=== PATIENT | female | born 1955 | race Caucasian/White ===

== ENCOUNTER 2021-02-07 06:15 | Observation (INO) | payer MEDICARE ==
--- NOTE | 2021-02-07 06:40 | ERPHSYRPT ---
- History of Present Illness Source: patient Exam Limitations: no limitations Timing/Duration: day(s) (3) Cough Quality/Degree: mild, dry cough Possible Cause: no prior episodes Modifying Factors: Improves With: coughing Associated Symptoms: cough, muscle aches, shortness of breath, No chest pain/ soreness <ALEXANDRA VILLEGAS - Last Filed: 02/07/21 06:58> <ELSA BARTLETT - Last Filed: 02/07/21 11:33> - History of Present Illness Time Seen by Provider: 02/07/21 06:39 Physician History: This is a morbidly obese 65-year-old white female who has a history of hypertension but is not on any treatment for and presents with known positive Covid 19 viral infection that was diagnosed yesterday. Patient symptoms of nausea, vomiting, diarrhea and cough as well as myalgias and arthralgias started Friday prior to evaluation. Patient also has a history of migraine headaches arthritis, restless leg syndrome, neuropathy and sciatica. Patient sees a nurse practitioner by the last name of Pallavi. Patient has taken intravenous Demerol in the past without any problems. Patient has had multiple orthopedic surgeries. (ALEXANDRA VILLEGAS) Allergies/Adverse Reactions: morphine Adverse Reaction (Intermediate, Verified 02/07/21 06:51) Vomiting Home Medications: Albuterol 8 gm Mdi Hfa [Ventolin Hfa MDI] 8 gm IH Q6HPRN PRN 02/07/21 [History] Ca/D3/Mag Ox/Zinc/Accounting Methods Analyst/Mahendra/Bor [Calcium 600-D3 Plus Caplet] 1 tab PO DAILY 02/07/21 [History] Cholecalciferol (Vitamin D3) [Vitamin D3] 1,000 units PO DAILY 02/07/21 [Histor y] Cyanocobalamin (Vitamin B-12) [Cyanocobalamin Injection] 1,000 mcg IM UD 02/07/21 [History] Escitalopram Oxalate 10 mg [Lexapro 10 MG] 10 mg PO DAILY 02/07/21 [History] Estradiol 1 mg PO DAILY 02/07/21 [History] Folic Acid 1 mg PO DAILY 02/07/21 [History] Furosemide 20 mg [Lasix 20 mg] 20 mg PO DAILY 02/07/21 [History] Gabapentin 300 mg [Neurontin 300 mg] 300 mg PO HS 02/07/21 [History] Hydrocodone/Acetaminophen [Hydrocodone-Acetamin 5-325 mg] 1 tab PO Q6H PRN PRN 02/07/21 [History] Ondansetron ODT 4 MG [Zofran Odt 4 mg] 4 mg SL Q4H PRN PRN 02/07/21 [History] Oxybutynin Chloride [Oxybutynin Chloride ER] 15 mg PO DAILY 02/07/21 [History] Potassium Chloride [K-Tab ER] 10 meq PO DAILY 02/07/21 [History] Tizanidine HCl 4 mg [Zanaflex 4 MG] 4 mg PO HS 02/07/21 [History] Travel Risk - International Travel Have you traveled outside of the country in past 3 weeks: No - Coronavirus Screening Are you exhibiting any of the following symptoms?: Yes Close contact with a COVID-19 positive Pt in past 14-21 Days: Yes <ALEXANDRA VILLEGAS - Last Filed: 02/07/21 06:58> - Review of Systems Constitutional: Weakness Eyes: No Symptoms Ears, Nose, & Throat: No Symptoms Respiratory: Cough, Dyspnea Cardiac: No Chest Pain Abdominal/Gastrointestinal: Abdominal Pain, Nausea, Vomiting, Diarrhea Genitourinary Symptoms: No Symptoms Musculoskeletal: No Symptoms Skin: No Symptoms Neurological: No Symptoms Psychological: No Symptoms Endocrine: No Symptoms Hematologic/Lymphatic: No Symptoms Immunological/Allergic: No Symptoms All Other Systems: Reviewed and Negative <ALEXANDRA VILLEGAS - Last Filed: 02/07/21 06:58> - Past Medical History Pertinent Past Medical History: Yes Neurological History: Migraines Cardiac History: No Pertinent History Respiratory History: No Pertinent History Endocrine Medical History: No Pertinent History Musculoskeletal History: Osteoarthritis - Past Surgical History Past Surgical History: Yes <ALEXANDRA VILLEGAS - Last Filed: 02/07/21 06:58> - Physical Exam General Appearance: mild distress, alert, anxiety, obese Eye Exam: PERRL/EOMI, eyes nml inspection Ears, Nose, Throat Exam: normal ENT inspection, moist mucous membranes Neck Exam: normal inspection, non-tender, supple, full range of motion Respiratory Exam: normal breath sounds, lungs clear, airway intact, No chest tenderness, No respiratory distress Cardiovascular Exam: regular rate/rhythm, normal heart sounds, normal peripheral pulses Gastrointestinal/Abdomen Exam: soft, normal bowel sounds, tenderness (Mild diffuse), No guarding Pelvic Exam: not done Rectal Exam: not done Back Exam: normal inspection, normal range of motion, No CVA tenderness, No vertebral tenderness Extremity Exam: normal inspection, normal range of motion, pelvis stable Neurologic Exam: alert, oriented x 3, cooperative, 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, normal mood/affect, sensation nml Skin Exam: normal color, warm, dry Lymphatic Exam: No adenopathy SpO2 Interpretation: normal O2 Delivery: Room Air <ALEXANDRA VILLEGAS - Last Filed: 02/07/21 06:58> - Nursing Vital Signs Nursing Vital Signs: Initial Vital Signs Temperature 98.1 F 02/07/21 06:16 Pulse Rate 66 02/07/21 06:16 Respiratory Rate 22 02/07/21 06:16 Blood Pressure 205/81 02/07/21 06:16 O2 Sat by Pulse Oximetry 97 02/07/21 06:16 Pain Scale Pain Intensity 2 - Course Nursing assessment & vital signs reviewed: Yes <ALEXANDRA VILLEGAS - Last Filed: 02/07/21 06:58> - Course EKG Interpreted by Ut: RATE (59), Sinus Rhythm, NORMAL AXIS, NORMAL INTERVALS - Radiology Exams Chest X-ray Interpretation: Teleradiologist Report (Cardiomegaly, lung granuloma, osteopenia, arthritis) - CT Exams Chest CT Interpretation: Tele-radiologist Report (No pulmonary embolus. Borderline cardiomegaly. Few tiny mediastinal calcified nodes. Small hiatal hernia. Calcified lung granulomas. No suspicious pulmonary masses. Mild osteopenia. Degenerative changes along the spine. Small L1 ventral hemangioma.) <ELSA BARTLETT - Last Filed: 02/07/21 11:33> Ordered Tests: Active Orders 24 hr Category Date Time Status EKG-ER Only STAT Care 02/07/21 06:41 Active IV Insertion STAT Care 02/07/21 06:41 Active Isolation, Initiate & Maintain STAT Care 02/07/21 06:41 Active CHEST 1 VIEW (PORTABLE) Stat Exams 02/07/21 06:44 Completed CHEST WITH CONTRAST [CT] Stat Exams 02/07/21 08:16 Completed AMYLASE Stat Lab 02/07/21 07:10 Completed BLOOD CULTURE Stat Lab 02/07/21 07:10 Received CBC W DIFF Stat Lab 02/07/21 07:10 Completed CMP Stat Lab 02/07/21 07:10 Completed CULTURE,URINE Stat Lab 02/07/21 07:11 Received D-DIMER QUANTITATIVE Stat Lab 02/07/21 07:10 Completed Ferritin Stat Lab 02/07/21 07:10 Completed INFLUENZA A+B AV Stat Lab 02/07/21 07:10 Completed LDH-LACTATE DEHYDROGENASE Stat Lab 02/07/21 07:10 Completed LIPASE Stat Lab 02/07/21 07:10 Completed Lactic Acid Stat Lab 02/07/21 06:41 Completed Manual Differential NC Stat Lab 02/07/21 07:10 Completed [place] Screen Stat Lab 02/07/21 07:10 Completed TROPONIN Q3H Lab 02/07/21 07:10 Completed TROPONIN Q3H Lab 02/07/21 10:00 Completed TROPONIN Q3H Lab 02/07/21 12:45 Ordered TROPONIN Q3H Lab 02/07/21 15:45 Ordered TROPONIN Q3H Lab 02/07/21 18:45 Ordered UA W/RFX UR CULTURE Stat Lab 02/07/21 07:11 Completed Transfer Order Routine Transfer 02/07/21 Ordered Medication Summary Generic Name Dose Route Start Last Admin Trade Name Freq PRN Reason Stop Dose Admin Nitroglycerin/Dextrose 250 mls @ 1.5 mls/hr 02/07/21 08:22 02/07/21 08:36 Ntg 0.2mg/Ml In D5w Glass IV 03/09/21 08:21 5 mcg/min .Q24H PRN 1.5 mls/hr CHEST PAIN Administration Protocol 5 MCG/MIN Potassium Chloride 20 meq in 100 mls @ 50 mls/hr 02/07/21 08:45 02/07/21 10:57 Potassium Chloride 20 Meq In Water 100ml IV 02/07/21 12:44 50 mls/hr Q2H FEDE Administration Magnesium Sulfate/Dextrose 100 mls @ 100 mls/hr 02/07/21 08:45 02/07/21 11:26 Magnesium 1 Gm / 100 Ml D5w IV 02/07/21 10:44 100 mls/hr Q1H FEDE Administration Sodium Chloride 1,000 mls @ 100 mls/hr 02/07/21 09:00 02/07/21 08:58 Sodium Chloride 0.9% 1000 Ml IV 03/09/21 08:59 100 mls/hr .Q10H FEDE Administration Discontinued Medications Generic Name Dose Route Start Last Admin Trade Name Freq PRN Reason Stop Dose Admin Aspirin 324 mg 02/07/21 08:23 02/07/21 08:36 Baby Aspirin 81 Mg Chew PO 02/07/21 08:24 324 mg STAT ONE Administration Aspirin Confirm 02/07/21 08:33 Baby Aspirin 81 Mg Chew Administered 02/07/21 08:34 Dose 324 mg .ROUTE .STK-MED ONE Sodium Chloride 1,000 mls @ 999 mls/hr 02/07/21 06:41 02/07/21 08:55 Sodium Chloride 0.9% 1000 Ml IV 02/07/21 07:41 Infused .Q1H1M STA Infusion Sodium Chloride Confirm 02/07/21 06:56 Sodium Chloride 0.9% 1000 Ml Administered 02/07/21 06:57 Dose 1,000 mls @ ud .ROUTE .STK-MED ONE Nicardipine HCl 25 mg/ Sodium 250 mls @ 0 mls/hr 02/07/21 08:18 Chloride IV 03/09/21 08:17 .Q0M PRN TITRATE FOR BLOOD PRESSURE Protocol Titrate Ceftriaxone Sodium/Dextrose 1 g in 50 mls @ 100 mls/hr 02/07/21 08:19 02/07/21 09:09 Rocephin 1 Gm-D5w 50 Ml Bag IV 02/07/21 08:48 Infused STAT ONE Infusion Ceftriaxone Sodium/Dextrose Confirm 02/07/21 08:33 Rocephin 1 Gm-D5w 50 Ml Bag Administered 02/07/21 08:34 Dose 1 g in 50 mls @ ud IV .STK-MED ONE Sodium Chloride Confirm 02/07/21 08:49 Sodium Chloride 0.9% 1000 Ml Administered 02/07/21 08:50 Dose 1,000 mls @ ud .ROUTE .STK-MED ONE Ketorolac Tromethamine 30 mg 02/07/21 07:57 02/07/21 08:05 Toradol 30 Mg Injection IV 02/07/21 07:58 30 mg STAT ONE Administration Ketorolac Tromethamine Confirm 02/07/21 08:02 Toradol 30 Mg Injection Administered 02/07/21 08:03 Dose 30 mg .ROUTE .STK-MED ONE Meperidine HCl 50 mg 02/07/21 06:51 02/07/21 06:58 Demerol 50 Mg IV 02/07/21 06:52 50 mg STAT ONE Administration Meperidine HCl Confirm 02/07/21 06:56 Demerol 50 Mg Administered 02/07/21 06:57 Dose 50 mg .ROUTE .[facility] ONE Ondansetron HCl 4 mg 02/07/21 06:41 02/07/21 06:57 Zofran 4 Mg/2 Ml Vial IV 02/07/21 06:42 4 mg STAT ONE Administration Ondansetron HCl Confirm 02/07/21 06:56 Zofran 4 Mg/2 Ml Vial Administered 02/07/21 06:57 Dose 4 mg .ROUTE .[facility] ONE Prochlorperazine Edisylate 10 mg 02/07/21 07:56 02/07/21 08:05 Compazine 10 Mg/2 Ml IV 02/07/21 07:57 10 mg STAT ONE Administration Prochlorperazine Edisylate Confirm 02/07/21 08:02 Compazine 10 Mg/2 Ml Administered 02/07/21 08:03 Dose 10 mg .ROUTE .[facility] Lab/Rad Data: Laboratory Result Diagrams 02/07/21 07:10 02/07/21 07:10 Laboratory Results 02/07/21 02/07/21 02/07/21 Range/Units 10:00 07:11 07:10 WBC (4.0-10.5) K/mm3 RBC (4.1-5.4) M/mm3 Hgb (12.0-16.0) gm/dl Hct (35-47) % MCV (78-100) fl MCH (26-32) pg MCHC (32-36) g/dl RDW (11.5-14.0) % Plt Count (150-450) K/mm3 MPV (7.5-11.0) fl D-Dimer (215-500) ng/mL Sodium (137-145) mmol/L Potassium (3.5-5.1) mmol/L Chloride (98-107) mmol/L Carbon Dioxide (22-30) mmol/L Anion Gap (5-15) MEQ/L BUN (7-17) mg/dL Creatinine (0.52-1.04) mg/dL Estimated GFR ML/MIN Glucose (74-106) mg/dL Lactic Acid (0.4-2.0) Calcium (8.4-10.2) mg/dL Ferritin (11.1-264) ng/mL Total Bilirubin (0.2-1.3) mg/dL AST (14-36) U/L ALT (0-35) U/L Alkaline Phosphatase (38-126) U/L Lactate Dehydrogenase (120-246) U/L Troponin I 0.097 H* (0.000-0.034) ng/mL Serum Total Protein (6.3-8.2) g/dL Albumin (3.5-5.0) g/dL Amylase (30-110) U/L Lipase (23-300) U/L Urine Color YELLOW (YELLOW) Urine Appearance SLIGHTLY CLOUDY (CLEAR) Urine pH 7.0 (5-6) Ur Specific [place] Level 1.010 (1.005-1.025) Urine Protein NEGATIVE (Negative) Urine Ketones MODERATE (NEGATIVE) Urine Blood SMALL (0-5) Prem/ul Urine Nitrite POSITIVE (NEGATIVE) Urine Bilirubin NEGATIVE (NEGATIVE) Urine Urobilinogen NEGATIVE (0-1) mg/dL Ur Leukocyte Esterase NEGATIVE (NEGATIVE) Urine WBC (Auto) 6-10 (0-5) /HPF Urine RBC (Auto) NONE (0-2) /HPF U Epithel Cells (Auto) NONE (FEW) /HPF Urine Bacteria (Auto) RARE (NEGATIVE) /HPF Urine Mucus (Auto) SLIGHT (NEGATIVE) /HPF Urine Culture Reflexed YES (NO) Urine Glucose NEGATIVE (NEGATIVE) mg/dL Monoscreen NEGATIVE (Negative) Influenza Type A Ag (NEGATIVE) Influenza Type B Ag (NEGATIVE) Group A Strep Antibody (NEGATIVE) 02/07/21 02/07/21 02/07/21 Range/Units 07:10 07:10 07:10 WBC (4.0-10.5) K/mm3 RBC (4.1-5.4) M/mm3 Hgb (12.0-16.0) gm/dl Hct (35-47) % MCV (78-100) fl MCH (26-32) pg MCHC (32-36) g/dl RDW (11.5-14.0) % Plt Count (150-450) K/mm3 MPV (7.5-11.0) fl D-Dimer (215-500) ng/mL Sodium (137-145) mmol/L Potassium (3.5-5.1) mmol/L Chloride (98-107) mmol/L Carbon Dioxide (22-30) mmol/L Anion Gap (5-15) MEQ/L BUN (7-17) mg/dL Creatinine (0.52-1.04) mg/dL Estimated GFR ML/MIN Glucose (74-106) mg/dL Lactic Acid (0.4-2.0) Calcium (8.4-10.2) mg/dL Ferritin (11.1-264) ng/mL Total Bilirubin (0.2-1.3) mg/dL AST (14-36) U/L ALT (0-35) U/L Alkaline Phosphatase (38-126) U/L Lactate Dehydrogenase (120-246) U/L Troponin I 0.105 H* (0.000-0.034) ng/mL Serum Total Protein (6.3-8.2) g/dL Albumin (3.5-5.0) g/dL Amylase (30-110) U/L Lipase (23-300) U/L Urine Color (YELLOW) Urine Appearance (CLEAR) Urine pH (5-6) Ur Specific [place] Level (1.005-1.025) Urine Protein (Negative) Urine Ketones (NEGATIVE) Urine Blood (0-5) Prem/ul Urine Nitrite (NEGATIVE) Urine Bilirubin (NEGATIVE) Urine Urobilinogen (0-1) mg/dL Ur Leukocyte Esterase (NEGATIVE) Urine WBC (Auto) (0-5) /HPF Urine RBC (Auto) (0-2) /HPF U Epithel Cells (Auto) (FEW) /HPF Urine Bacteria (Auto) (NEGATIVE) /HPF Urine Mucus (Auto) (NEGATIVE) /HPF Urine Culture Reflexed (NO) Urine Glucose (NEGATIVE) mg/dL Monoscreen (Negative) Influenza Type A Ag NEGATIVE (NEGATIVE) Influenza Type B Ag NEGATIVE (NEGATIVE) Group A Strep Antibody NOT DETECTED (NEGATIVE) 02/07/21 02/07/21 02/07/21 Range/Units 07:10 07:10 07:10 WBC 5.0 (4.0-10.5) K/mm3 RBC 4.45 (4.1-5.4) M/mm3 Hgb 13.9 (12.0-16.0) gm/dl Hct 41.9 (35-47) % MCV 94.2 (78-100) fl MCH 31.2 (26-32) pg MCHC 33.2 (32-36) g/dl RDW 12.8 (11.5-14.0) % Plt Count 246 (150-450) K/mm3 MPV 10.2 (7.5-11.0) fl D-Dimer 1293 H* (215-500) ng/mL Sodium 140 (137-145) mmol/L Potassium 3.1 L (3.5-5.1) mmol/L Chloride 107 (98-107) mmol/L Carbon Dioxide 18 L (22-30) mmol/L Anion Gap 17.5 H (5-15) MEQ/L BUN 6 L (7-17) mg/dL Creatinine 0.58 (0.52-1.04) mg/dL Estimated GFR > 60.0 ML/MIN Glucose 124 H (74-106) mg/dL Lactic Acid (0.4-2.0) Calcium 8.9 (8.4-10.2) mg/dL Ferritin 173 (11.1-264) ng/mL Total Bilirubin 0.50 (0.2-1.3) mg/dL AST 34 (14-36) U/L ALT 21 (0-35) U/L Alkaline Phosphatase 113 (38-126) U/L Lactate Dehydrogenase 212 (120-246) U/L Troponin I (0.000-0.034) ng/mL Serum Total Protein 8.1 (6.3-8.2) g/dL Albumin 4.2 (3.5-5.0) g/dL Amylase 94 (30-110) U/L Lipase 34 (23-300) U/L Urine Color (YELLOW) Urine Appearance (CLEAR) Urine pH (5-6) Ur Specific [place] Level (1.005-1.025) Urine Protein (Negative) Urine Ketones (NEGATIVE) Urine Blood (0-5) Prem/ul Urine Nitrite (NEGATIVE) Urine Bilirubin (NEGATIVE) Urine Urobilinogen (0-1) mg/dL Ur Leukocyte Esterase (NEGATIVE) Urine WBC (Auto) (0-5) /HPF Urine RBC (Auto) (0-2) /HPF U Epithel Cells (Auto) (FEW) /HPF Urine Bacteria (Auto) (NEGATIVE) /HPF Urine Mucus (Auto) (NEGATIVE) /HPF Urine Culture Reflexed (NO) Urine Glucose (NEGATIVE) mg/dL Monoscreen (Negative) Influenza Type A Ag (NEGATIVE) Influenza Type B Ag (NEGATIVE) Group A Strep Antibody (NEGATIVE) 02/07/21 Range/Units 06:41 WBC (4.0-10.5) K/mm3 RBC (4.1-5.4) M/mm3 Hgb (12.0-16.0) gm/dl Hct (35-47) % MCV (78-100) fl MCH (26-32) pg MCHC (32-36) g/dl RDW (11.5-14.0) % Plt Count (150-450) K/mm3 MPV (7.5-11.0) fl D-Dimer (215-500) ng/mL Sodium (137-145) mmol/L Potassium (3.5-5.1) mmol/L Chloride (98-107) mmol/L Carbon Dioxide (22-30) mmol/L Anion Gap (5-15) MEQ/L BUN (7-17) mg/dL Creatinine (0.52-1.04) mg/dL Estimated GFR ML/MIN Glucose (74-106) mg/dL Lactic Acid 1.8 (0.4-2.0) Calcium (8.4-10.2) mg/dL Ferritin (11.1-264) ng/mL Total Bilirubin (0.2-1.3) mg/dL AST (14-36) U/L ALT (0-35) U/L Alkaline Phosphatase (38-126) U/L Lactate Dehydrogenase (120-246) U/L Troponin I (0.000-0.034) ng/mL Serum Total Protein (6.3-8.2) g/dL Albumin (3.5-5.0) g/dL Amylase (30-110) U/L Lipase (23-300) U/L Urine Color (YELLOW) Urine Appearance (CLEAR) Urine pH (5-6) Ur Specific [place] Level (1.005-1.025) Urine Protein (Negative) Urine Ketones (NEGATIVE) Urine Blood (0-5) Prem/ul Urine Nitrite (NEGATIVE) Urine Bilirubin (NEGATIVE) Urine Urobilinogen (0-1) mg/dL Ur Leukocyte Esterase (NEGATIVE) Urine WBC (Auto) (0-5) /HPF Urine RBC (Auto) (0-2) /HPF U Epithel Cells (Auto) (FEW) /HPF Urine Bacteria (Auto) (NEGATIVE) /HPF Urine Mucus (Auto) (NEGATIVE) /HPF Urine Culture Reflexed (NO) Urine Glucose (NEGATIVE) mg/dL Monoscreen (Negative) Influenza Type A Ag (NEGATIVE) Influenza Type B Ag (NEGATIVE) Group A Strep Antibody (NEGATIVE) - Progress Progress: improved Air Movement: good Blood Culture(s) Obtained: Yes Counseled pt/family regarding: lab results, diagnosis, need for follow-up, rad results <ALEXANDRA VILLEGAS - Last Filed: 02/07/21 06:58> <ELSA BARTLETT - Last Filed: 02/07/21 11:33> - Progress Progress Note: 02/07/21 06:56 Patient care is being transferred to Dr. Elsa Bartlett at shift change. He was advised of the lab work, EKG and x-ray that are pending. He will follow up on those studies and make the final disposition. (ALEXANDRA VILLEGAS) 02/07/21 11:[address] Bartlett at approximately 7 AM. Patient previously seen by Dr. Villegas. Patient is Covid positive. She presents with intractable nausea and vomiting. Nausea and vomiting somewhat improved however she is still unable to tolerate p.o. Work-up reveals urinary tract infection. IV antibiotics administered. Potassium replaced for hypokalemia. Initial troponin was elevated. This was attributed to hypertensive emergency as patient has no chest pain and blood pressure systolic is above 200. Patient received nitroglycerin drip as well as aspirin. Repeat troponin trending downward. Patient is not ready for discharge. We will admit. Case discussed with Dr. Rowe who accepts admission to the Covid unit. Plan of care discussed with patient. She agrees to admission to [facility] for further evaluation and treatment. Patient voices no other complaints concerns at this time. Portions of this note were created with voice recognition technology. There may be grammatical, spelling, punctuation or sound alike errors (ELSA BARTLETT) - Departure Departure Disposition: Home Critical Care Time: No <ALEXANDRA VILLEGAS - Last Filed: 02/07/21 06:58> - Departure Departure Disposition: Observation <ELSA BARTLETT - Last Filed: 02/07/21 11:33> - Departure Clinical Impression: COVID-19 virus infection, Elevated troponin, Hypertensive emergency, UTI (urinary tract infection), COVID-19, Intractable nausea and vomiting, ACS (acute coronary syndrome), Cardiomegaly, Lung granuloma, Osteopenia, Arthritis, Hiatal hernia, Fatty liver Condition: Stable Referrals: JOSÉ MIGUEL FIGUEROA [Primary Care Provider] -
[2021-02-07] MEDS ORDERED: Zofran 4 MG/2 ML VIAL IV ONE (06:41)
[2021-02-07] MEDS ORDERED: Sodium Chloride 0.9% 1000 ML 1,000 ML IV STA (06:41)
[2021-02-07] MEDS ORDERED: DEMEROL 50 MG IV ONE (06:51)
[2021-02-07] MEDS ORDERED: Sodium Chloride 0.9% 1000 ML 0 ML ONE (06:56)
[2021-02-07] MEDS ORDERED: Zofran 4 MG/2 ML VIAL ONE (06:56)
[2021-02-07] MEDS ORDERED: DEMEROL 50 MG ONE (06:56)
[2021-02-07 07:37] LABS: Hematocrit 41.9 % (35-47); Hemoglobin 13.9 gm/dl (12.0-16.0); Mean Cell Volume 94.2 fl (78-100); Mean Corpuscular Hemoglobin 31.2 pg (26-32); Mean Corpuscular Hgb Concent. 33.2 g/dl (32-36); Mean Platelet Volume 10.2 fl (7.5-11.0); Platelet Count 246 K/mm3 (150-450); Red Blood Count 4.45 M/mm3 (4.1-5.4); Red Cell Distribution Width 12.8 % (11.5-14.0)
[2021-02-07] MEDS ORDERED: Compazine 10 MG/2 ML IV ONE (07:56)
[2021-02-07] MEDS ORDERED: TORAdol 30 mg Injection IV ONE (07:57)
[2021-02-07] MEDS ORDERED: TORAdol 30 mg Injection ONE (08:02)
[2021-02-07] MEDS ORDERED: Compazine 10 MG/2 ML ONE (08:02)
[2021-02-07 08:05] LABS: Appearance SLIGHTLY CLOUDY (CLEAR); Bacteria RARE /HPF (NEGATIVE); Bilirubin NEGATIVE (NEGATIVE); Blood SMALL Ery/ul (0-5); Glucose NEGATIVE (NEGATIVE); Ketones MODERATE (NEGATIVE); Leukocyte Esterase NEGATIVE (NEGATIVE); Mucus SLIGHT /HPF (NEGATIVE); Nitrite POSITIVE (NEGATIVE); Protein,Urine Dip NEGATIVE (Negative); Urobilinogen NEGATIVE mg/dL (0-1)
[2021-02-07 08:14] LABS: INFLUENZA A NEGATIVE (NEGATIVE); INFLUENZA B NEGATIVE (NEGATIVE)
[2021-02-07] MEDS ORDERED: CARDENE 25 MG/10 ML*** 25 MG in Sodium Chloride 0.9% 250 ML 240 ML IV PRN (08:18)
[2021-02-07] MEDS ORDERED: ROCEPHIN 1 Gm-D5w 50 ml Bag** 1 G/50 ML IVPB IV ONE ×2 (08:19→08:33)
[2021-02-07] MEDS ORDERED: Ntg 0.2MG/Ml in D5W GLASS*** 250 ML IV PRN (08:22)
[2021-02-07] MEDS ORDERED: BABY ASPIRIN 81 MG CHEW PO ONE (08:23)
[2021-02-07 08:32] LABS: ALBUMIN 4.2 g/dL (3.5-5.0); ALKALINE PHOSPHATASE 113 U/L (38-126); AMYLASE 94 U/L (30-110); ANION GAP 17.5 MEQ/L (5-15); BLOOD UREA NITROGEN 6 mg/dL (7-17); CHLORIDE 107 mmol/L (98-107); Calcium 8.9 mg/dL (8.4-10.2); Carbon Dioxide 18 mmol/L (22-30); Creatinine 1 0.58 mg/dL (0.52-1.04); EST GLOMERULAR FILTRATION RATE > 60.0 ML/MIN; Ferritin 173 ng/mL (11.1-264); Glucose 124 mg/dL (74-106); LDH-LACTATE DEHYDROGENASE 212 U/L (120-246); LIPASE 34 U/L (23-300); Potassium 3.1 mmol/L (3.5-5.1); SGOT/AST 34 U/L (14-36); SGPT/ALT 21 U/L (0-35); SODIUM 140 mmol/L (137-145); Total Protein 8.1 g/dL (6.3-8.2)
[2021-02-07] MEDS ORDERED: Ntg 0.2MG/Ml in D5W GLASS*** 250 ML IV ONE (08:33)
[2021-02-07] MEDS ORDERED: BABY ASPIRIN 81 MG CHEW ONE (08:33)
[2021-02-07] MEDS ORDERED: Magnesium 1 Gm / 100 Ml D5W*** 0 ML IV ONE (08:45)
[2021-02-07] MEDS: Magnesium 1 Gm / 100 Ml D5W*** 100 ML IV SCH ×2 (08:46→11:26)
[2021-02-07] MEDS ORDERED: Sodium Chloride 0.9% 1000 ML 1,000 ML ONE ×2 (08:49→08:58)
[2021-02-07] MEDS ORDERED: POTASSIUM CHLORIDE 20 mEq IN WATER 100ML 100 ML IV ONE ×2 (08:49→10:56)
[2021-02-07] MEDS: POTASSIUM CHLORIDE 20 mEq IN WATER 100ML 20 MEQ/100 ML BAG IV SCH ×2 (08:50→10:57)
[2021-02-07] MEDS ORDERED: Sodium Chloride 0.9% 1000 ML 1,000 ML IV SCH ×2 (09:00→14:08)
[2021-02-07] MEDS ORDERED: Magnesium 1 Gm / 100 Ml D5W*** 100 ML IV ONE ×2 (09:03→11:25)
--- NOTE | 2021-02-07 09:11 | XRAY ---
Indication: Cough. Positive Covid 19. Comparison: None Portable chest demonstrates cardiomegaly and a few tiny pulmonary calcified granulomas. No focal infiltrate, consolidation, or large effusion. Bony thorax intact with mild osteopenia, degenerative changes, old left 7 rib fracture, and distal right clavicle resection. Impression: Nonacute chest with chronic features.
--- NOTE | 2021-02-07 09:44 | XRAY ---
Indication: Short of breath. Elevated d-dimer. Positive Covid 19. Multiple contiguous images obtained through the chest using 100 cc Isovue 370 contrast and PE protocol. Comparison: None There is adequate opacification of the pulmonary arteries to include the lobar and segmental branches. No pulmonary embolus. Heart borderline enlarged. Aorta is normal in course and caliber. A few tiny mediastinal calcified nodes. No pathologic mediastinal/hilar lymphadenopathy. Small hiatal hernia. Lungs demonstrates minimal bilateral dependent atelectasis, minimal bibasilar fibrosis/scarring, and bilateral posterior gutter calcified granulomas. No suspicious pulmonary mass, infiltrate, or effusion. Bony thorax intact with mild osteopenia and mild/moderate degenerative changes throughout the spine. Superior endplate T12 demonstrates concave deformity either Schmorl node versus remote fracture. Incidental small L1 vertebral hemangioma. Limited upper abdomen demonstrates mild fatty liver and cholecystectomy clips. Impression: 1. Negative pulmonary embolus. No acute cardiopulmonary abnormalities. 2. Incidental borderline cardiomegaly, small hiatal hernia, fatty liver, chronic bony findings, and old granulomatous disease.
[2021-02-07 11:42] LABS: Lymphocytes 18 % (24-44); Monocyte 2 % (0.0-12.0); Neutrophils 80 % (36.0-66.0); Platelet Estimate NORMAL (NORMAL); Total Cells Counted 100
[2021-02-07] MEDS ORDERED: TYLENOL 325 MG PO PRN (14:08)
[2021-02-07] MEDS ORDERED: SODIUM CHLORIDE 0.9% W/ 40 mEq KCL 1000ML 1,000 ML IV ONE (14:08)
[2021-02-07] MEDS ORDERED: MORPHINE SULFATE 10 MG/ML IV PRN (14:10)
[2021-02-07] MEDS: Zofran 4 MG/2 ML VIAL IV PRN ×2 (14:28→23:05)
[2021-02-07] MEDS: Ativan 2 MG/1 ML VIAL IV PRN ×2 (14:28→23:05)
[2021-02-07] MEDS: SODIUM CHLORIDE 0.9% W/ 40 mEq KCL 1000ML 1,000 ML IV SCH ×2 (14:48→21:24)
[2021-02-07] MEDS ORDERED: Nubain 10 MG/ML IV PRN (14:52)
[2021-02-07] MEDS ORDERED: DECADRON 10MG INJ. IV SCH (15:00)
[2021-02-07] MEDS ORDERED: NORCO 5/325 MG PO PRN (20:52)
[2021-02-07] MEDS ORDERED: NEURONTIN 300 MG PO SCH (22:00)
[2021-02-07] MEDS ORDERED: Catapres 0.1 MG PO SCH (22:00)
[2021-02-07] MEDS ORDERED: Zanaflex 4 MG PO SCH (22:00)
[2021-02-08 05:33] LABS: Hematocrit 38.5 % (35-47); Hemoglobin 12.5 gm/dl (12.0-16.0); Mean Corpuscular Hemoglobin 31.5 pg (26-32); Mean Corpuscular Hgb Concent. 32.5 g/dl (32-36); Mean Platelet Volume 9.8 fl (7.5-11.0); Platelet Count 226 K/mm3 (150-450); Red Blood Count 3.97 M/mm3 (4.1-5.4); Red Cell Distribution Width 13.4 % (11.5-14.0); White Blood Count 4.1 K/mm3 (4.0-10.5)
[2021-02-08 05:57] LABS: ALBUMIN 3.5 g/dL (3.5-5.0); ALKALINE PHOSPHATASE 81 U/L (38-126); ANION GAP 12.8 MEQ/L (5-15); BLOOD UREA NITROGEN 7 mg/dL (7-17); CHLORIDE 110 mmol/L (98-107); Calcium 7.6 mg/dL (8.4-10.2); Carbon Dioxide 19 mmol/L (22-30); Creatinine 1 0.53 mg/dL (0.52-1.04); EST GLOMERULAR FILTRATION RATE > 60.0 ML/MIN; Glucose 150 mg/dL (74-106); Potassium 4.9 mmol/L (3.5-5.1); SGOT/AST 35 U/L (14-36); SGPT/ALT 20 U/L (0-35); SODIUM 137 mmol/L (137-145)
[2021-02-08] MEDS: SODIUM CHLORIDE 0.9% W/ 40 mEq KCL 1000ML 1,000 ML IV SCH (06:23)
[2021-02-08] MEDS ORDERED: Nubain 10 MG/ML IV PRN (07:15)
[2021-02-08] MEDS ORDERED: Ventolin Hfa MDI IH PRN (07:26)
[2021-02-08] MEDS ORDERED: ZOFRAN ODT 4 MG PO PRN (07:26)
[2021-02-08] MEDS ORDERED: VENTOLIN COMMON CANISTER IH PRN (07:34)
[2021-02-08 09:40] VITALS: BP 147/72
[2021-02-08 09:53] VITALS: PULSE 65
[2021-02-08] MEDS ORDERED: MELOXICAM PO SCH (10:00)
[2021-02-08] MEDS ORDERED: ROCEPHIN 1 Gm-D5w 50 ml Bag** 1 G/50 ML IVPB IV SCH (10:00)
[2021-02-08] MEDS ORDERED: ESTRACE 1 MG PO SCH (10:00)
[2021-02-08] MEDS ORDERED: Klor Con 10 MEQ PO SCH (10:00)
[2021-02-08] MEDS ORDERED: Ditropan XL 5 MG PO SCH (10:00)
[2021-02-08] MEDS ORDERED: OXYBUTYNIN CHLORIDE 15 MG PO SCH (10:00)
[2021-02-08] MEDS ORDERED: LASIX 20 MG PO SCH (10:00)
[2021-02-08 14:37] LABS: Lymphocytes 19 % (24-44); Monocyte 1 % (0.0-12.0); Neutrophils 80 % (36.0-66.0); Total Cells Counted 100
[2021-02-08 14:38] LABS: Platelet Estimate NORMAL (NORMAL)
[2021-02-08 15:05] VITALS: O2SAT 96
[2021-02-08] MEDS ORDERED: Zanaflex 4 MG PO SCH (22:00)
--- NOTE | 2021-02-14 13:58 | SSS ---
ADMISSION DIAGNOSES: 1) COVID gastroenteritis. 2) Mild dehydration. 3) Hypertension. 4) Arthritis of the knees with chronic pain. DISCHARGE DIAGNOSES: 1) COVID GASTROENTERITIS. 2) COVID UPPER RESPIRATORY TRACT INFECTION. 3) ASTHMA. 4) PERIPHERAL NEUROPATHY. HISTORY: The patient came to the emergency room on the date of admission suffering from nausea, some shortness of breath, some sharp chest pain. She has had a COVID vaccine and has completed it. However her test was positive. She states she has been exposed to friends who have had it. She had a headache and this was after she was given some nitroglycerin as she was having some chest pain. She described the chest pain to me as more sharpness and worse with inspiration. She has a chronic cough and has not been sleeping well. She complained of generalized feeling weak, tired and somewhat scared of the diagnosis. MEDICATIONS: Albuterol 2 puffs every six hours PRN, calcium with vitamin D q.d., vitamin D3 q.d., Clonidine 0.3 mg q.d., B12 q.d., Estradiol 1 mg q.d., Lasix 20 q.d., gabapentin 300 h.s. for peripheral neuropathy of the feet. Vicodin 1 every six hours PRN, Meloxicam 7.5 q.d. for knee pain, Oxybutynin 1 tablet for spastic bladder. Recently some Zofran, KCL Slow Release 10 mEq q.d. and Zanaflex 4 mg h.s. sleep and neuropathy of the feet. ALLERGIES: MORPHINE. PAST MEDICAL HISTORY: Asthma. Peripheral neuropathy. Knee pain. Spastic bladder. PAST SURGICAL HISTORY: None. REVIEW OF SYSTEMS: HEENT: No problems hearing or seeing. CHEST: Kind of achiness but also sharp pain with inspiration and movement. ABDOMEN: Nausea, not able to hold anything down for the last two days. EXTREMITIES: At night she has burning and stinging in her feet. She also has some aching in her knees and other joints for which she is on hydrocodone. PHYSICAL EXAMINATION: The patient is alert, orientated, pleasant, appropriately aged 65 year-old white female who was in moderate distress in the emergency room. She is holding her head complaining mostly now of headache when I saw her yesterday in the emergency room. She had some chest pain she states she thought was from coughing which she has had for the last few days. She is upset because she is COVID-positive despite having the vaccine and because of feeling bad now for the third day. Not been able to hold fluids down. Other complaints of chronic numbness and tingling in her feet which is worse at night. HEENT: Pupils equal and reactive to light. NECK: Supple without adenopathy. CHEST: Clear. CVS: Regular rate. No murmurs or gallops. Slight chest wall tenderness. EXTREMITIES: Tenderness of the knees due to degenerative changes. HOSPITAL COURSE: The patient was treated with some O2 at 2 liters. Troponin initially was elevated minimally but came down. D-dimer initially was elevated 1600 and came down the next day. She improved quite readily with some low flow oxygen, Decadron, Remdesivir. She was anticoagulated with some Lovenox 40 mg q.d. She was discharged home on her home medications to follow up with her usual physician in two weeks, to call if oxygen drops below 90% or if she had trouble holding food down which was no longer a problem. PROGNOSIS: Good.
== END 2021-02-08 13:50 | disposition home or self-care (01) ==
LOC: ED 06:15 → MED SURG 14:00
PROVIDERS: ADMIT Family Medicine; ATTEND Family Medicine
DX: U07.1 COVID-19 (principal); K52.9 Noninfective gastroenteritis and colitis, unspecified; J06.9 Acute upper respiratory infection, unspecified; R11.2 Nausea with vomiting, unspecified; E87.6 Hypokalemia; E86.0 Dehydration; N39.0 Urinary tract infection, site not specified; R51.9 Headache, unspecified; G62.9 Polyneuropathy, unspecified; G25.81 Restless legs syndrome; Z79.899 Other long term (current) drug therapy; R10.9 Unspecified abdominal pain; I10 Essential (primary) hypertension; M17.0 Bilateral primary osteoarthritis of knee; G89.29 Other chronic pain; R07.9 Chest pain, unspecified
CPT/HCPCS: 36000; 36415; 71045; 71260; 80053; 81001; 82150; 82728; 82947; 83605; 83615; 83690; 84484; 85025; 85379; 86308; 87040; 87077; 87086; 87186; 87400; 87651; 93005; 93268; 94762; 96360; 96365; 96374; 96375; 99285; G0378; J0696; J1100; J1885; J2060; J2175; J2300; J2405; J3475; J3480; Q0162; A9270-GY